=== PATIENT | female | born 1980 | race Caucasian/White ===

== ENCOUNTER 2021-02-25 14:33 | Inpatient (IN) | payer MEDICAID, OTHER ==
[~2021-02-25] VITALS: Ht 149.9 cm; Wt 57.2 kg
[2021-02-25 15:36] LABS: BASOPHILS % 0.5 % (0.0-2.0); EOSINOPHILS % 0.9 % (0.0-5.0); HEMATOCRIT. 38.9 % (36.0-48.0); HEMOGLOBIN. 13.1 g/dL (12.0-16.0); LYMPHOCYTES % 12.5 % (20.0-50.0); MEAN CORPUSCULAR HEMOGLOBIN 31.2 pg (28.0-32.0); MEAN CORPUSCULAR VOLUME 93.1 fL (81.0-99.0); MEAN PLATELET VOLUME 8.4 fl (7.4-10.4); NEUTROPHILS % 81.1 % (40.0-76.0); PLATELET 244 x1000/uL (130-400); RED BLOOD CELL COUNT 4.18 mill/uL (4.2-5.4); RED CELL DISTRIBUTION WIDTH 12.8 % (11.6-14.6)
[2021-02-25 15:41] LABS: CHLORIDE 106 mEq/L (98-107)
[2021-02-25 15:45] LABS: ETHANOL BLOOD < 10 mg/dL
[2021-02-25 16:23] LABS: CLARITY URINE CLEAR (CLEAR); COLOR URINE YELLOW (YELLOW); KETONES URINE TRACE (NEGATIVE); LEUKOCYTE ESTERASE URINE NEGATIVE (NEGATIVE); NITRITE URINE NEGATIVE (NEGATIVE); OCCULT BLOOD URINE NEGATIVE (NEGATIVE); PH URINE 6.5 (4.5-8.0); PROTEIN URINE TRACE (NEGATIVE); SPECIFIC GRAVITY URINE 1.019 (1.005-1.030); UROBILINOGEN URINE 0.2 E.U./dL (0.2-1.0)
[2021-02-25 17:10] LABS: *BARBITURATES SCREEN URINE NEGATIVE (NEGATIVE); *BENZODIAZEPINES SCREEN URINE NEGATIVE (NEGATIVE); *COCAINE SCREEN URINE NEGATIVE (NEGATIVE); METHADONE URINE SCREEN NEGATIVE (NEGATIVE); OPIATES URINE SCREEN NEGATIVE (NEGATIVE)
[2021-02-25 17:11] LABS: *AMPHETAMINES SCREEN URINE NEGATIVE (NEGATIVE); CANNABINOID URINE SCREEN NEGATIVE (NEGATIVE); PHENCYCLIDINE URINE SCREEN NEGATIVE (NEGATIVE)
[2021-02-25] MEDS ORDERED: NITROGLYCERIN 0.4MG TABLET SL SL PRN (20:00)
[2021-02-25] MEDS ORDERED: ZOLPIDEM TARTRATE 5MG TABLET PO PRN (20:00)
[2021-02-25] MEDS ORDERED: CLONIDINE 0.1MG TABLET PO PRN (20:00)
[2021-02-25] MEDS ORDERED: DOCUSATE SODIUM 100MG CAPSULE PO PRN (20:00)
[2021-02-25] MEDS ORDERED: IPRATROPIUM/ALBUTEROL 0.5-3(2.5)MG/3ML NEB NEB PRN (20:00)
[2021-02-25] MEDS ORDERED: ACETAMINOPHEN 325MG TABLET PO PRN ×2 (20:00)
[2021-02-25] MEDS ORDERED: GUAIFENESIN 200MG/10ML SUGAR FREE UDC PO PRN (20:00)
[2021-02-25] MEDS ORDERED: LORAZEPAM 2MG/ML CPJ IV PRN (20:00)
[2021-02-25] MEDS ORDERED: KETOROLAC 15MG/ML VIAL IV PRN (20:00)
[2021-02-25] MEDS ORDERED: ONDANSETRON HCL 4MG/2ML INJ IV PRN (20:00)
[2021-02-25] MEDS ORDERED: MAGNESIUM/ALUMINUM HYDROXIDE/SIMETHICONE 30ML UDC PO PRN (20:00)
[2021-02-25 21:00] VITALS: BP 108/65
[2021-02-25] MEDS: ENOXAPARIN 40MG/0.4ML SYR SUBCUT SCH (21:52)
[2021-02-25] MEDS: FAMOTIDINE 20MG TABLET PO SCH (21:52)
[2021-02-25] MEDS: LEVETIRACETAM 500MG TABLET PO SCH (22:35)
[2021-02-25 23:46] LABS: CREATINE KINASE MB FRACTION 3.1 ng/mL (0.5-3.6)
[2021-02-26] VITALS (7 sets, daily range): BP systolic 92–111; BP diastolic 39–64
[2021-02-26 06:37] LABS: CREATINE KINASE MB FRACTION 1.7 ng/mL (0.5-3.6)
[2021-02-26] MEDS: FAMOTIDINE 20MG TABLET PO SCH ×2 (08:46→21:30)
[2021-02-26] MEDS: LEVETIRACETAM 500MG TABLET PO SCH ×2 (08:47→21:29)
[2021-02-26] MEDS ORDERED: GADOTERATE MEGLUMINE 5 MMOL/10 ML VIAL IV ONE (10:17)
[2021-02-26] MEDS: ENOXAPARIN 40MG/0.4ML SYR SUBCUT SCH (21:29)
[2021-02-27] VITALS: BP 100/61
[2021-02-27 04:00] VITALS: BP 95/60
[2021-02-27 08:00] VITALS: BP 97/89
[2021-02-27] MEDS: LEVETIRACETAM 500MG TABLET PO SCH ×2 (08:32→23:05)
[2021-02-27] MEDS: FAMOTIDINE 20MG TABLET PO SCH ×2 (08:32→23:05)
[2021-02-27 12:00] VITALS: BP 94/60
[2021-02-27 16:00] VITALS: BP 99/63
[2021-02-27] MEDS: DEXAMETHASONE 1MG TABLET PO SCH (16:23)
[2021-02-27] MEDS: ALBENDAZOLE 200 MG PO SCH (17:38)
[2021-02-27 20:00] VITALS: BP 97/60
[2021-02-27] MEDS: ENOXAPARIN 40MG/0.4ML SYR SUBCUT SCH (23:06)
[2021-02-28] VITALS: BP 99/50
[2021-02-28 04:00] VITALS: BP 98/49
[2021-02-28 08:00] VITALS: BP 99/62
[2021-02-28] MEDS: DEXAMETHASONE 1MG TABLET PO SCH (08:29)
[2021-02-28] MEDS: FAMOTIDINE 20MG TABLET PO SCH (08:29)
[2021-02-28] MEDS: LEVETIRACETAM 500MG TABLET PO SCH (08:29)
[2021-02-28] MEDS: ALBENDAZOLE 200 MG PO SCH ×3 (08:31→09:37)
[2021-02-28 12:17] VITALS: BP 103/64
[2021-02-28 12:18] VITALS: BP 103/64
[2021-03-05 04:09] LABS: OVA & PARASITE EXAM Final report (.)
== END 2021-02-28 13:30 | disposition home or self-care (01) | DRG 248 ==
LOC: EDBD 14:42 → ER 14:42 → 6WST 17:56 → EDBEDREQTM 18:09 → EDBEDREQ 18:09 → ENRESERV 19:13
PROVIDERS: ADMIT Internal Medicine; ATTEND Internal Medicine
DX: B69.0 Cysticercosis of central nervous system (principal); G92.8 Other toxic encephalopathy; G93.89 Other specified disorders of brain; R56.9 Unspecified convulsions; E83.51 Hypocalcemia
CPT/HCPCS: 36415; 70553; 80053; 80305; 80320; 81003; 82550; 82553; 84484; 85025; 87177; 87209; 93970; 97161; 97165; 99285; A9577; J1650; J1885; J8540; G0480